=== PATIENT | male | born 1985 | race Caucasian/White ===

== ENCOUNTER 2023-09-16 15:47 | Emergency (ER) | payer BC ==
[~2023-09-16] VITALS: Ht 165.1 cm; Wt 68.0 kg
[2023-09-16 15:57] VITALS: BP 189/108; PULSE 79; RESP 16; TEMP 98.1; O2SAT 98
[2023-09-16] MEDS ORDERED: BACITRACIN ZINC OINT UDPKT TOP ONE (16:30)
[2023-09-16] MEDS ORDERED: TETANUS, DIPHTHERIA, PERTUSSIS VAC/PF 0.5ML (>10YR OLD) IM ONE ×2 (16:30→19:30)
[2023-09-16] MEDS ORDERED: LIDOCAINE HCL/PF 1% 10 MG/ML 5ML VIAL INFIL ONE (16:30)
[2023-09-16] MEDS ORDERED: BO1 TP (18:12)
[2023-09-16] MEDS ORDERED: LIDOCAINE HCL/PF 1% 10 MG/ML 5ML VIAL INFIL NR (19:15)
[2023-09-16] MEDS ORDERED: BACITRACIN ZINC OINT UDPKT TOP NR (19:15)
== END 2023-09-16 19:39 | disposition home or self-care (01) ==
LOC: ER 15:47
DX: S61.412A Laceration without foreign body of left hand, initial encounter (principal); I10 Essential (primary) hypertension; X58.XXXA Exposure to other specified factors, initial encounter; Y93.89 Activity, other specified; Y92.89 Other specified places as the place of occurrence of the external cause; Y99.8 Other external cause status
CPT/HCPCS: 90715; 12002; 99283; J3490; Z7610